=== PATIENT | male | born 2000 | race Hispanic/Latino ===

== ENCOUNTER 2020-04-20 16:08 | Outpatient (CLI) | payer BC ==
--- NOTE | 2020-04-20 16:36 | RAD ---
RIGHT ANKLE: Three views. HISTORY: Ankle pain. No significant soft tissue swelling. No fracture or osseous abnormality. IMPRESSION: No acute findings. POS: [facility]
== END 2020-04-20 16:09 | disposition home or self-care (01) ==
LOC: NAV RAD 16:08
PROVIDERS: ATTEND Nurse Practitioner Adult Health
DX: M25.571 Pain in right ankle and joints of right foot (principal)